=== PATIENT | female | born 1960 | race Caucasian/White ===

== ENCOUNTER → 2016-09-18 | Outpatient (CLI) | payer BC ==
[~2016-09-18] MED LIST: ALBU1AER9 INH; ATV/1 PO; CALC8.5C PO; CETI10TA84 PO; DEXL60CA4 PO; LIFI5DRO OPB; MOME220A INH; MULT-506 PO; NYSTCRE32 TOP; SNG10 PO; SUCR1TAB29 PO
--- NOTE | 2016-09-18 13:57 | MAMMOGRAPHY REPORT ---
BILATERAL DIGITAL SCREENING MAMMOGRAM TOMOSYNTHESIS WITH CAD: 09/18/2016 CLINICAL HISTORY: Routine screening. Patient has no complaints. TECHNIQUE: Breast tomosynthesis in addition to standard 2D mammography was performed. Current study was also evaluated with a Computer Aided Detection (CAD) system. COMPARISON: Comparison is made to exams dated: 09/17/2015 mammogram, 08/01/2014 mammogram, 07/31/2013 ma mmogram, 07/27/2012 mammogram, 07/22/2011 mammogram, and 07/21/2010 mammogram - [facility]. BREAST COMPOSITION: There are scattered areas of fibroglandular density in both breasts. FINDINGS: No suspicious masses, calcifications, or areas of architectural distortion are noted in e ither breast. There has been no significant interval change compared to prior exams. Small bilatera l benign-appearing masses are stable compared to prior exams. Benign-appearing left breast calcific ations are also stable. IMPRESSION: ACR BI-RADS CATEGORY 1: NEGATIVE There is no mammographic evidence of malignancy. A 1 year screening mammogram is recommended. The p atient will receive written notification of the results. Approximately 10% of breast cancers are not detected with mammography. A negative mammographic repor t should not delay biopsy if a clinically suggestive mass is present. Antonette Howe M.D. /:09/18/2016 12:24:38 [employer]: April LEWIS(Fuad)(Jamee)(BD), [facility] letter sent: Normal 1/2 BI-RADS Code: ACR BI-RADS Category 1: Negative
== END | disposition home or self-care (01) ==
LOC: C.MAMM 08:57
PROVIDERS: ATTEND Obstetrics & Gynecology
DX: Z12.31 Encounter for screening mammogram for malignant neoplasm of breast (principal)

== ENCOUNTER → 2016-09-22 | Day surgery (SDC) | payer BC ==
[2016-09-21 12:53] VITALS: Ht 171.5 cm; Wt 86.4 kg
[~2016-09-22] VITALS: Ht 171.5 cm; Wt 86.4 kg
[~2016-09-22] MED LIST changes: +LIDOCAINE HCL 2% 2 ML VIAL (20MG/ML) ONE; +MIDAZOLAM HCL 1 MG/ML 2ML VIAL ONE; -MOME220A INH; -NYSTCRE32 TOP; +ONDANSETRON INJ 2 MG/ML 2 ML VIAL ONE; +PROPOFOL IV EMULSION 10 MG/ML 20 ML VIAL IV ONE; +SODIUM CHLORIDE 0.9% 500ML 500 ML IV ONE
--- NOTE | 2016-09-22 11:10 | Endo History and Physical ---
History & Physical Date of Service: Sep 22, 2016. Chief Complaint: GERD Abd pain Referring Physician: Dr Mon History of Present Illness 56 yo CF who presents for EGD secondary to abdominal pain and GERD Past Surgical History Hx Cardiac Surgery: No Hx Internal Defibrillator: No Hx Pacemaker: No Hx Abdominal Surgery: Yes (HUNTER, D&C X5) Hx of Implantable Prosthesis: No Hx Post-Op Nausea and Vomiting: No Hx Cancer Surgery: No Hx Thoracic Surgery: No Hx Orthopedic: Yes (LT CTR, LT WRIST GANGLION CYST REMOVAL) Hx Urinary Tract Surgery: No Family History Colon CA Social History Smoking Status: Former Smoker Hx Substance Use: No Hx Alcohol Use: No Allergies Coded Allergies: Penicillins (Verified Allergy, Unknown, GI UPSET - HAPPENED A CHILD, ) Current Medications Reported Home Medications Medications Dose Route/Sig Max Daily Dose Days Date Category Carafate (Sucralfate) 1 Gm Tab 1 Gm PO QID 09/21/16 Reported Viactiv (Calcium W/ Vitamins D & K) 1 Chw Chw 2 Chw PO QAM 09/21/12 Reported Dexilant (Dexlansoprazole) 60 Mg Cap 60 Mg PO QAM 09/21/12 Reported Proair Hfa (Albuterol Sulfate) 108 Mcg/ Aer 1-2 Puffs INH Q4H PRN 09/12/12 Reported Multivitamin (Multivitamins) Tab 1 Tab PO QAM 09/12/12 Reported Ativan (Lorazepam) 1 Mg Tab 1 Mg PO BID PRN PRN 09/12/12 Reported Zyrtec (Cetirizine HCl) 10 Mg Tab 10 Mg PO QAM 12/07/09 Reported Singulair * (Montelukast Sodium) 10 Mg Tab 10 Mg PO QAM 12/07/09 Reported Vital Signs Weight (Kilograms): 86.36 Height (Feet): 5 Height (Inches): 7.5 Date Time Temp Pulse Resp B/P Pulse Ox O2 Delivery O2 Flow Rate FiO2 09/22/16 11:01 36.6 86 20 176/85 99 Room Air Physical Exam General Appearance: WD/WN, no apparent distress Respiratory/Chest: Auscultation: breath sounds normal Cardiovascular: Heart Auscultation: RRR Abdomen: Bowel Sounds: normal Inspection & Palpation: soft, non-distended, no tenderness, guarding & rebound Assessment and Plan Assessment: 56 yo CF who presents for EGD secondary to abdominal pain and GERD Plan: Proceed with EGD.
--- NOTE | 2016-09-22 11:27 | Discharge Instructions ---
Endoscopy Patient Instructions Date / Procedure(s) Performed Sep 22, 2016. EGD Allergy Information Coded Allergies: Penicillins (Verified Allergy, Unknown, GI UPSET - HAPPENED A CHILD, ) Discharge Date / Findings Sep 22, 2016. Gastritis s/p biopsies Hiatal hernia Provider Instructions Activity Restrictions - No exercising or heavy lifting for 24 hours. - Do not drink alcohol the day of the procedure. - Do not drive a car or operate machinery until the day after the procedure. - Do not make any important decisions or sign important papers in 24 hours after the procedure. Following Day: - Return to full activity which may include returning to work/school. Diet Start your diet with liquids and light foods (jello, soup, juice, toast). Then eat your usual diet if not nauseated. Treatment For Common After Affects For mild abdominal pain, bloating, or excessive gas: - Rest - Eat lightly - Lie on right side Follow-Up Information Follow-up with Dr Mon as scheduled Anesthesia Information What You Should Know You have had a procedure that required some medicine to reduce anxiety and discomfort. This treatment is called moderate sedation. After receiving the treatment, you may be sleepy, but you will be able to breathe on your own. The effects of the treatment may last for several hours. Follow these instructions along with Activity/Diet recommendations noted above: * Do NOT do anything where dizziness or clumsiness would be dangerous. * Rest quietly at home today, then you can be up and about tomorrow. * Have a responsible person stay with you the rest of today. * You may have had an I.V. today. If so, you may take the dressing off later today. Recommendations Call your doctor if: * Trouble breathing * Continuous vomiting for more than 24 hours * Temperature above 101 degrees * Severe abdominal pain or bloating * Pain not relieved by pain medicine ordered * There is increased drainage or redness from any incision * A large amount of rectal bleeding greater than 2-3 tablespoons. (If you had a polyp/s removed or have hemorrhoids, a small amount of blood - from the rectum is to be expected.) * You have any unanswered questions or concerns. IN THE EVENT OF A SERIOUS EMERGENCY, GO TO THE NEAREST EMERGENCY ROOM Your discharge instructions were prepared by provider Anatoliy Bay. Patient Instructions Signature Page Britney Mcdaniels Patient (or Guardian) Signature/Date: I have read and understand the instructions given to me by my caregivers. Caregiver/RN/Doctor Signature/Date: The above-named patient and/or guardian has received patient instructions on this date. + Original Patient Signature Page (only) stays with chart. Please make copy for patient.
--- NOTE | 2016-09-22 11:31 | GI REPORT ---
Procedure Date: 09/22/2016 11:17 AM Procedure: Upper GI endoscopy Indications: Epigastric abdominal pain, Gastro-esophageal reflux disease Medicines: Monitored Anesthesia Care Complications: No immediate complications. Estimated Blood Loss: Estimated blood loss: none. Procedure: Pre-Anesthesia Assessment: - Prior to the procedure, a History and Physical was performed, and patient medications and allergies were reviewed. The patient's tolerance of previous anesthesia was also reviewed. The risks and benefits of the procedure and the sedation options and risks were discussed with the patient. All questions were answered, and informed consent was obtained. Prior Anticoagulants: The patient has taken no previous anticoagulant or antiplatelet agents. ASA Grade Assessment: II - A patient with mild systemic disease. After reviewing the risks and benefits, the patient was deemed in satisfactory condition to undergo the procedure. After obtaining informed consent, the endoscope was passed under direct vision. Throughout the procedure, the patient's blood pressure, pulse, and oxygen saturations were monitored continuously. The scope was introduced through the mouth, and advanced to the second part of duodenum. The upper GI endoscopy was accomplished without difficulty. The patient tolerated the procedure well. Findings: The esophagus was normal. A small hiatus hernia was present. Localized mild inflammation characterized by erythema was found in the gastric antrum. Biopsies were taken with a cold forceps for histology. The examined duodenum was normal. Impression: - Normal esophagus. - Small hiatus hernia. - Gastritis. Biopsied. - Normal examined duodenum. Recommendation: - Resume previous diet. - Continue present medications. - Await pathology results. - Return to GI office as previously scheduled. Anatoliy Bay DO 09/22/2016 11:30:57 AM This report has been signed electronically. Note Initiated On: 09/22/2016 11:17 AM I attest to the content of the Intraoperative Record and orders documented therein, exceptions below
[2016-09-22 12:02] VITALS: BP 151/74; PULSE 80; O2SAT 96
--- NOTE | 2016-09-22 15:27 | Anesthesiology Progress Note ---
Anesthesia Post Op Note Date & Time Sep 22, 2016 at 15:27 Vital Signs Pain Intensity: 0 Vital Signs Past 12 Hours Date Time Temp Pulse Resp B/P Pulse Ox O2 Delivery O2 Flow Rate FiO2 09/22/16 12:02 80 20 151/74 96 Room Air 09/22/16 11:45 79 20 154/88 96 Room Air 09/22/16 11:32 73 20 134/85 99 Room Air 09/22/16 11:01 36.6 86 20 176/85 99 Room Air Notes Mental Status: alert / awake / arousable, participated in evaluation Pt Amnestic to Procedure: Yes Nausea / Vomiting: adequately controlled Pain: adequately controlled Airway Patency, RR, SpO2: stable & adequate BP & HR: stable & adequate Hydration State: stable & adequate Anesthetic Complications: no major complications apparent
== END | disposition home or self-care (01) ==
LOC: C.GI 10:22
PROVIDERS: ATTEND Internal Medicine
DX: K29.70 Gastritis, unspecified, without bleeding (principal); K21.9 Gastro-esophageal reflux disease without esophagitis; K44.9 Diaphragmatic hernia without obstruction or gangrene; Z98.890 Other specified postprocedural states; Z88.0 Allergy status to penicillin

== ENCOUNTER → 2016-11-06 | Outpatient (CLI) | payer BC ==
[~2016-11-06] MED LIST changes: -LIDOCAINE HCL 2% 2 ML VIAL (20MG/ML) ONE; -MIDAZOLAM HCL 1 MG/ML 2ML VIAL ONE; -ONDANSETRON INJ 2 MG/ML 2 ML VIAL ONE; -PROPOFOL IV EMULSION 10 MG/ML 20 ML VIAL IV ONE; -SODIUM CHLORIDE 0.9% 500ML 500 ML IV ONE
[2016-11-06 14:52] LABS: BASO % 0.6 %; BASO ABS # 0.03 K/uL (0-0.2); COMPLETE YES; IG% 0.2 %; LYMPH % 41.8 %; LYMPH ABS # 2.06 K/uL (1.2-3.4); MEAN CELL VOLUME 92.1 fL (80-100); MEAN CORPUSCULAR HEMOGLOBIN 31.8 pg (25-34); MEAN CORPUSCULAR HGB CONC 34.5 g/dl (32-36); MEAN PLATELET VOLUME 10.4 fL (7.4-10.4); MONO % 4.7 %; NEUT % 51.7 %; PLATELET COUNT 197 K/uL (130-400); RED BLOOD COUNT 4.56 M/uL (4.2-5.4); WHITE BLOOD COUNT 4.93 K/uL (4.8-10.8)
[2016-11-06 15:07] LABS: ALT/SGPT 79 U/L (12-78); AST/SGOT 36 U/L (15-37); BLOOD UREA NITROGEN 14 mg/dl (7-18); BUN/CREATININE RATIO 15.9 (10-20); CARBON DIOXIDE 30 mmol/L (21-32); CHLORIDE 109 mmol/L (98-107); CREATININE 0.86 mg/dl (0.60-1.20); GLUCOSE 102 mg/dl (70-99); POTASSIUM 4.2 mmol/L (3.5-5.1); SODIUM 144 mmol/L (136-145)
[2016-11-06 15:10] LABS: ALB/GLOB RATIO 1.1 (0.9-2); ALKALINE PHOSPHATASE 57 U/L (45-117); CHOLESTEROL 204 mg/dl (0-200); CHOLESTEROL/HDL RATIO 3.5; HDL CHOLESTEROL 59 mg/dl; LDL CHOLESTEROL CALCULATED 125 mg/dl; TRIGLYCERIDES 100 mg/dl (0-150); VERY LOW DENSITY LIPOPROT CALC 20 mg/dl
== END | disposition home or self-care (01) ==
LOC: C.LABBC 09:56
PROVIDERS: ATTEND Family Medicine
DX: Z11.59 Encounter for screening for other viral diseases (principal); Z13.220 Encounter for screening for lipoid disorders; N20.0 Calculus of kidney; K29.50 Unspecified chronic gastritis without bleeding

== ENCOUNTER → 2016-11-11 | Outpatient (CLI) | payer BC ==
[2016-11-11 12:29] LABS: URINE APPEARANCE CLEAR (CLEAR); URINE BILIRUBIN NEG (NEG); URINE COLOR YELLOW; URINE NITRITE NEG (NEG); URINE PH 6.5 (4.5-7.5); URINE SPECIFIC GRAVITY 1.026 (1.000-1.030); UROBILINOGEN NEG (NEG)
[2016-11-11 12:39] LABS: MANUAL MICROSCOPIC REQUIRED? NO; REVIEW REQ? NO
== END | disposition home or self-care (01) ==
LOC: C.LAB1850 09:00
PROVIDERS: ATTEND Family Medicine
DX: R39.9 Unspecified symptoms and signs involving the genitourinary system (principal)

== ENCOUNTER → 2016-11-12 | Outpatient (CLI) | payer BC ==
--- NOTE | 2016-11-12 12:22 | DIAGNOSTIC IMAGING REPORT ---
RENAL ULTRASOUND HISTORY: Nephrocalcinosis KIDNEY STONE COMPARISON: 09/01/2012 FINDINGS: Right kidney: Maximum dimension 12.0 cm. Unchanged nonobstructing 5 mm mid pole calcification. No evidence for hydronephrosis. Normal corticomedullary differentiation and cortical thickness. Left kidney: Maximum dimension 11.3 cm. No evidence for hydronephrosis. Normal corticomedullary differentiation and cortical thickness. Bladder: No bladder wall thickening. The bilateral ureteral jets were identified. IMPRESSION: 5 mm nonobstructing renal calcification on the right. No evidence hydronephrosis. No change from the prior study. Electronically signed by: Bravo Sibley M.D. 11/12/2016 12:19 PM Dictated Date/Time: 11/12/2016 12:18 PM
== END | disposition home or self-care (01) ==
LOC: C.ULTRBC 11:39
PROVIDERS: ATTEND Family Medicine
DX: N20.0 Calculus of kidney (principal)

== ENCOUNTER → 2016-11-16 | Outpatient (CLI) | payer BC ==
[2016-11-16 16:15] LABS: URINE APPEARANCE CLEAR (CLEAR); URINE BILIRUBIN NEG (NEG); URINE COLOR YELLOW; URINE EPITHELIAL CELL AUTO >30 /lpf (0-5); URINE NITRITE NEG (NEG); URINE SPECIFIC GRAVITY 1.011 (1.000-1.030); UROBILINOGEN NEG (NEG); ZZUR CULT IF INDIC CLEAN CATCH NO
[2016-11-16 16:20] LABS: MANUAL MICROSCOPIC REQUIRED? NO; REVIEW REQ? NO
== END | disposition home or self-care (01) ==
LOC: C.LAB1850 12:35
PROVIDERS: ATTEND Family Medicine
DX: R39.9 Unspecified symptoms and signs involving the genitourinary system (principal)

== ENCOUNTER → 2016-11-17 | Outpatient (CLI) | payer BC ==
[2016-11-17 15:59] LABS: URINE APPEARANCE CLEAR (CLEAR); URINE BILIRUBIN NEG (NEG); URINE COLOR YELLOW; URINE EPITHELIAL CELL AUTO >30 /lpf (0-5); URINE NITRITE NEG (NEG); URINE PH 6.5 (4.5-7.5); UROBILINOGEN NEG (NEG)
[2016-11-17 16:02] LABS: MANUAL MICROSCOPIC REQUIRED? NO; REVIEW REQ? NO
== END | disposition home or self-care (01) ==
LOC: C.LABSPEC 15:06
PROVIDERS: ATTEND Physician Assistant
DX: R39.9 Unspecified symptoms and signs involving the genitourinary system (principal)

== ENCOUNTER → 2017-01-25 | Day surgery (SDC) | payer BC ==
[2016-12-30 08:27] VITALS: Ht 171.5 cm; Wt 86.4 kg
[~2017-01-25] VITALS: Ht 171.5 cm; Wt 86.4 kg
[~2017-01-25] MED LIST changes: +LIDOCAINE HCL 2% 2 ML VIAL (20MG/ML) ONE; +MIDAZOLAM HCL 1 MG/ML 2ML VIAL ONE; +PROPOFOL IV EMULSION 10 MG/ML 20 ML VIAL IV ONE; +SODIUM CHLORIDE 0.9% 500ML 500 ML IV ONE
--- NOTE | 2017-01-25 13:34 | Endo History and Physical ---
History & Physical Date of Service: Jan 25, 2017. Chief Complaint: SCREENING, FAMILY HX OF COLON CANCER Referring Physician: CHANDU URENA PA-C History of Present Illness 56 yo CF who presents for colonoscopy secondary to family history of colon cancer. Past Surgical History Hx Cardiac Surgery: No Hx Internal Defibrillator: No Hx Pacemaker: No Hx Abdominal Surgery: Yes (HUNTER, D&C X5) Hx of Implantable Prosthesis: No Hx Post-Op Nausea and Vomiting: No Hx Cancer Surgery: No Hx Thoracic Surgery: No Hx Orthopedic: Yes (LT CTR, LT WRIST GANGLION CYST REMOVAL) Hx Urinary Tract Surgery: No Family History Colon CA Social History Smoking Status: Former Smoker Hx Substance Use: No Hx Alcohol Use: No Allergies Coded Allergies: Penicillins (Verified Allergy, Unknown, GI UPSET - HAPPENED A CHILD, 01/25/17) Current Medications Reported Home Medications Medications Dose Route/Sig Max Daily Dose Days Date Category Carafate (Sucralfate) 1 Gm Tab 1 Tab PO QID PRN 30 12/30/16 Reported Xiidra (Lifitegrast) 5 % Pravin 1 Drop OPB BID 12/30/16 Reported Viactiv (Calcium W/ Vitamins D & K) 1 Chw Chw 2 Chw PO QAM 09/21/12 Reported Dexilant (Dexlansoprazole) 60 Mg Cap 60 Mg PO QAM 09/21/12 Reported Proair Hfa (Albuterol Sulfate) 108 Mcg/ Aer 1-2 Puffs INH Q4H PRN 09/12/12 Reported Multivitamin (Multivitamins) Tab 1 Tab PO QAM 09/12/12 Reported Ativan (Lorazepam) 1 Mg Tab 1 Mg PO BID PRN PRN 09/12/12 Reported Zyrtec (Cetirizine HCl) 10 Mg Tab 10 Mg PO QAM 12/07/09 Reported Singulair * (Montelukast Sodium) 10 Mg Tab 10 Mg PO QAM 12/07/09 Reported Vital Signs Weight (Kilograms): 86.36 Height (Feet): 5 Height (Inches): 7.5 Date Time Temp Pulse Resp B/P (MAP) Pulse Ox O2 Delivery O2 Flow Rate FiO2 01/25/17 13:19 36.1 91 20 172/103 (126) 98 Room Air Physical Exam General Appearance: WD/WN, no apparent distress Respiratory/Chest: Auscultation: breath sounds normal Cardiovascular: Heart Auscultation: RRR Abdomen: Bowel Sounds: normal Inspection & Palpation: soft, non-distended, no tenderness, guarding & rebound Assessment and Plan Assessment: 56 yo CF who presents for colonoscopy secondary to family history of colon cancer. Plan: Proceed with colonoscopy.
--- NOTE | 2017-01-25 13:51 | Discharge Instructions ---
Endoscopy Patient Instructions Date / Procedure(s) Performed Jan 25, 2017. Colonoscopy Allergy Information Coded Allergies: Penicillins (Verified Allergy, Unknown, GI UPSET - HAPPENED A CHILD, 01/25/17) Discharge Date / Findings Jan 25, 2017. Diverticulosis Internal hemorrhoids Medication Instructions OK to resume all medications today as prescribed Reported Home Medications Medications Dose Route/Sig Max Daily Dose Days Date Category Carafate (Sucralfate) 1 Gm Tab 1 Tab PO QID PRN 30 12/30/16 Reported Xiidra (Lifitegrast) 5 % Pravin 1 Drop OPB BID 12/30/16 Reported Viactiv (Calcium W/ Vitamins D & K) 1 Chw Chw 2 Chw PO QAM 09/21/12 Reported Dexilant (Dexlansoprazole) 60 Mg Cap 60 Mg PO QAM 09/21/12 Reported Proair Hfa (Albuterol Sulfate) 108 Mcg/ Aer 1-2 Puffs INH Q4H PRN 09/12/12 Reported Multivitamin (Multivitamins) Tab 1 Tab PO QAM 09/12/12 Reported Ativan (Lorazepam) 1 Mg Tab 1 Mg PO BID PRN PRN 09/12/12 Reported Zyrtec (Cetirizine HCl) 10 Mg Tab 10 Mg PO QAM 12/07/09 Reported Singulair * (Montelukast Sodium) 10 Mg Tab 10 Mg PO QAM 12/07/09 Reported Provider Instructions Activity Restrictions - No exercising or heavy lifting for 24 hours. - Do not drink alcohol the day of the procedure. - Do not drive a car or operate machinery until the day after the procedure. - Do not make any important decisions or sign important papers in 24 hours after the procedure. Following Day: - Return to full activity which may include returning to work/school. Diet Start your diet with liquids and light foods (jello, soup, juice, toast). Then eat your usual diet if not nauseated. Treatment For Common After Affects For mild abdominal pain, bloating, or excessive gas: - Rest - Eat lightly - Lie on right side Follow-Up Information Follow-up with CHANDU URENA PA-C as scheduled Anesthesia Information What You Should Know You have had a procedure that required some medicine to reduce anxiety and discomfort. This treatment is called moderate sedation. After receiving the treatment, you may be sleepy, but you will be able to breathe on your own. The effects of the treatment may last for several hours. Follow these instructions along with Activity/Diet recommendations noted above: * Do NOT do anything where dizziness or clumsiness would be dangerous. * Rest quietly at home today, then you can be up and about tomorrow. * Have a responsible person stay with you the rest of today. * You may have had an I.V. today. If so, you may take the dressing off later today. Recommendations Call your doctor if: * Trouble breathing * Continuous vomiting for more than 24 hours * Temperature above 101 degrees * Severe abdominal pain or bloating * Pain not relieved by pain medicine ordered * There is increased drainage or redness from any incision * A large amount of rectal bleeding greater than 2-3 tablespoons. (If you had a polyp/s removed or have hemorrhoids, a small amount of blood - from the rectum is to be expected.) * You have any unanswered questions or concerns. IN THE EVENT OF A SERIOUS EMERGENCY, GO TO THE NEAREST EMERGENCY ROOM Your discharge instructions were prepared by provider Anatoliy Bay. Patient Instructions Signature Page Britney Mcdaniels Patient (or Guardian) Signature/Date: I have read and understand the instructions given to me by my caregivers. Caregiver/RN/Doctor Signature/Date: The above-named patient and/or guardian has received patient instructions on this date. + Original Patient Signature Page (only) stays with chart. Please make copy for patient.
--- NOTE | 2017-01-25 13:54 | GI REPORT ---
Procedure Date: 01/25/2017 1:26 PM Procedure: Colonoscopy Indications: Family history of colon cancer in a first-degree relative Medicines: Monitored Anesthesia Care Complications: No immediate complications. Estimated Blood Loss: Estimated blood loss: none. Procedure: Pre-Anesthesia Assessment: - Prior to the procedure, a History and Physical was performed, and patient medications and allergies were reviewed. The patient's tolerance of previous anesthesia was also reviewed. The risks and benefits of the procedure and the sedation options and risks were discussed with the patient. All questions were answered, and informed consent was obtained. Prior Anticoagulants: The patient has taken no previous anticoagulant or antiplatelet agents. ASA Grade Assessment: II - A patient with mild systemic disease. After reviewing the risks and benefits, the patient was deemed in satisfactory condition to undergo the procedure. After I obtained informed consent, the scope was passed under direct vision. Throughout the procedure, the patient's blood pressure, pulse, and oxygen saturations were monitored continuously. The scope was introduced through the anus and advanced to the terminal ileum. The colonoscopy was performed without difficulty. The patient tolerated the procedure well. The quality of the bowel preparation was good. The terminal ileum, ileocecal valve, appendiceal orifice, and rectum were photographed. Findings: Multiple small-mouthed diverticula were found in the sigmoid colon. Non-bleeding internal hemorrhoids were found during retroflexion. The hemorrhoids were small. Impression: - Diverticulosis in the sigmoid colon. - Non-bleeding internal hemorrhoids. - No specimens collected. Recommendation: - Resume previous diet. - Continue present medications. - Repeat colonoscopy in 5 years for surveillance. - Return to primary care physician as previously scheduled. Anatoliy Bay DO 01/25/2017 1:53:27 PM This report has been signed electronically. Note Initiated On: 01/25/2017 1:26 PM I attest to the content of the Intraoperative Record and orders documented therein, exceptions below
[2017-01-25 14:20] VITALS: BP 136/92; PULSE 72; O2SAT 96
--- NOTE | 2017-01-25 14:26 | Anesthesiology Progress Note ---
Anesthesia Post Op Note Date & Time Jan 25, 2017 at 14:26 Vital Signs Pain Intensity: 0 Vital Signs Past 12 Hours Date Time Temp Pulse Resp B/P (MAP) Pulse Ox O2 Delivery O2 Flow Rate FiO2 01/25/17 14:20 72 16 136/92 (107) 96 Room Air 01/25/17 14:05 73 16 121/81 (94) 96 Room Air 01/25/17 13:50 71 16 116/68 (84) 96 Nasal Cannula 2 01/25/17 13:19 36.1 91 20 172/103 (126) 98 Room Air Notes Mental Status: alert / awake / arousable, participated in evaluation Pt Amnestic to Procedure: Yes Nausea / Vomiting: adequately controlled Pain: adequately controlled Airway Patency, RR, SpO2: stable & adequate BP & HR: stable & adequate Hydration State: stable & adequate Anesthetic Complications: no major complications apparent
== END | disposition home or self-care (01) ==
LOC: C.GI 12:49
PROVIDERS: ATTEND Internal Medicine
DX: Z12.11 Encounter for screening for malignant neoplasm of colon (principal); Z80.0 Family history of malignant neoplasm of digestive organs; K64.8 Other hemorrhoids; K57.90 Diverticulosis of intestine, part unspecified, without perforation or abscess without bleeding; Z90.49 Acquired absence of other specified parts of digestive tract; Z87.891 Personal history of nicotine dependence

== ENCOUNTER → 2017-06-25 | Outpatient (CLI) | payer BC ==
[~2017-06-25] MED LIST changes: -LIDOCAINE HCL 2% 2 ML VIAL (20MG/ML) ONE; -MIDAZOLAM HCL 1 MG/ML 2ML VIAL ONE; -PROPOFOL IV EMULSION 10 MG/ML 20 ML VIAL IV ONE; -SODIUM CHLORIDE 0.9% 500ML 500 ML IV ONE
== END | disposition home or self-care (01) ==
LOC: C.PAPS 16:42
PROVIDERS: ATTEND Obstetrics & Gynecology
DX: Z01.419 Encounter for gynecological examination (general) (routine) without abnormal findings (principal)

== ENCOUNTER → 2017-09-21 | Outpatient (CLI) | payer OTHER ==
--- NOTE | 2017-09-22 15:53 | MAMMOGRAPHY REPORT ---
BILATERAL DIGITAL SCREENING MAMMOGRAM TOMOSYNTHESIS WITH CAD: 09/21/2017 CLINICAL HISTORY: Routine screening. Patient has no complaints. TECHNIQUE: Breast tomosynthesis in addition to standard 2D mammography was performed. Current study was also evaluated with a Computer Aided Detection (CAD) system. COMPARISON: Comparison is made to exams dated: 09/18/2016 mammogram, 08/01/2014 mammogram, 09/17/2015 ma mmogram, 07/31/2013 mammogram, 07/27/2012 mammogram, and 07/22/2011 mammogram - [facility] ter. BREAST COMPOSITION: There are scattered areas of fibroglandular density in both breasts. FINDINGS: There is stable focal asymmetry in the 12:00 to 1:00 left breast, and stable benign-appeari ng calcifications in the 12:00 left breast. No new suspicious mass, architectural distortion or clus ter of microcalcifications is seen. IMPRESSION: ACR BI-RADS CATEGORY 1: NEGATIVE There is no mammographic evidence of malignancy. A 1 year screening mammogram is recommended. The pa tient will receive written notification of the results. Approximately 10% of breast cancers are not detected with mammography. A negative mammographic report should not delay biopsy if a clinically suggestive mass is present. Anh Díaz M.D. 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
== END | disposition home or self-care (01) ==
LOC: C.MAMM 08:53
PROVIDERS: ATTEND Obstetrics & Gynecology
DX: Z12.31 Encounter for screening mammogram for malignant neoplasm of breast (principal)

== ENCOUNTER → 2018-03-02 | Outpatient (CLI) | payer OTHER | END | disposition home or self-care (01) | LOC: C.LABSPEC 17:23 | PROVIDERS: ATTEND Nurse Practitioner Adult Health | DX: R39.9 Unspecified symptoms and signs involving the genitourinary system (principal) ==